=== PATIENT | male | born 1995 | race Caucasian/White ===

== ENCOUNTER → 2017-07-08 | Outpatient (REF) ==
[~2017-07-08] MED LIST: PRD20T PO; RT-ALBUINH IH
== END | disposition home or self-care (01) ==
LOC: OCC 14:43
PROVIDERS: ATTEND Nurse Practitioner Family

== ENCOUNTER → 2017-07-08 | Outpatient (REF) ==
--- NOTE | 2017-07-08 15:12 | Diagnostic Imaging Report ---
INDICATION: Injury to the right wrist. TIME OF EXAM: 3:09 p.m. FINDINGS: Three views of the right wrist demonstrate the distal radius and ulna to be intact. The carpus is intact. Metacarpals are unremarkable. No fractures are identified. IMPRESSION: No acute bony abnormality is detected. Dictated by: Dictated on workstation # [id number]
== END | disposition home or self-care (01) ==
LOC: EDBD 14:14 → OCC 14:14
PROVIDERS: ATTEND Nurse Practitioner Family
CPT/HCPCS: 73110